=== PATIENT | female | born 1990 | race Caucasian/White ===

== ENCOUNTER 2019-12-26 14:42 | Emergency (ER) | payer OTHER, SELFPAY ==
--- NOTE | ~2019-12-26 | US_ITS ---
US OB <= 14 weeks fetus DATE: 12/26/2019 15:20 INDICATION: Light vaginal bleeding; 8 weeks with twins. History of 2 miscarriages. TECHNIQUE: Real-time imaging and Doppler analysis COMPARISON: None FINDINGS: Dichorionic diamniotic twin gestation is identified. Yolk sac and poles are identifie d in each sac. Normal alignment of amniotic fluid in each sac. Estimated gestational ages are 7 weeks 3 days and 7 weeks 1 day. heart rates are 185 and 161 bp m. A couple of hypoechoic areas are seen within the uterus, measuring 2.2 x 2.1 x 0.5 cm and 1.7 x 1.7 x 0.7 cm. These are consistent with small subchorionic hemorrhages. The ovaries are nonvisualized. No pelvic free fluid is detected. IMPRESSION: 2 small subchorionic hematomas Dichorionic diamniotic twin gestation Reviewed, dictated and finalized at [facility]. Reviewed, dictated and finalized at [facility].
[2019-12-26 14:43] VITALS: BP 110/68; PULSE 86; RESP 18; TEMP 36.9; O2SAT 100
[2019-12-26 15:08] LABS: Basophils Percent Auto 0.2 % (0.2-1.2); Eosinophils Absolute Auto 0.1 K/mm3 (0-0.3); Eosinophils Percent Auto 0.7 % (0-4.4); Hematocrit 37.3 % (37.0-47.0); Hemoglobin 12.9 g/dL (12.0-15.0); Immature Granulocyte Absolute 0.06 K/mm3 (0.00-0.031); Immature Granulocyte Percent A 0.4 % (0-0.5); Lymphocytes Absolute Auto 1.94 K/mm3 (0.9-3.2); Lymphocytes Percent Auto 14.4 % (18.3-44.2); Mean Corpuscular HGB Conc 34.6 g/dl (32-36); Mean Corpuscular Hemoglobin 30.3 pg (26-34); Mean Corpuscular Volume 87.6 fl (80-100); Mean Platelet Volume 10.2 fl (7.4-10.4); Monocytes Absolute Auto 0.8 K/mm3 (0.1-0.6); Monocytes Percent Auto 5.8 % (2.6-8.5); Neutrophils Absolute Auto 10.5 K/mm3 (1.3-6.7); Neutrophils Percent Auto 78.5 % (45.5-73.1); Platelet Count Result 283 k/mm3 (150-375); Red Blood Count 4.26 M/mm3 (4.2-5.4); Red Cell Distribution Width 12.2 % (11.5-14.5); White Blood Count 13.4 K/mm3 (4.5-10.0)
--- NOTE | 2019-12-26 16:55 | ED.ABDPAIN ---
HPI - Abdominal Pain General Chief Complaint: Urogenital-Female Stated Complaint: Preg/Bleeding Time Seen by Provider: 12/26/19 14:48 Source: patient and family History of Present Illness HPI narrative: 29 years old white female 5 para 2 2. Currently patient is 8 weeks , was urinating, white, noticed pinkish coloration on the wipe, denies any cramps or pain. Denies any active vaginal bleeding. Patient had history of 2 miscarriages which make her very nervous about any vaginal discharge. Patient denies any fever, chills, nausea, vomiting, diarrhea, constipation or urinary symptoms. Related Data Home Medications Medication Instructions Recorded Confirmed No Home Medications 12/26/19 12/26/19 Allergies Allergy/AdvReac Type Severity Reaction Status Date / Time Penicillins Allergy Rash Verified 12/26/19 14:53 Review of Systems Review of Systems: Narrative: CONSTITUTIONAL: Denies fever, chills, or sweats. EYES: Denies visual changes, redness, or discharge. ENT: Denies rhinorrhea, congestion, sore throat, or otalgia. CARDIOVASCULAR: Denies chest pain, palpitations, or edema. RESPIRATORY: Denies cough or dyspnea. GASTROINTESTINAL: Denies abdominal pain, nausea, vomiting, or diarrhea. GENITOURINARY: Denies dysuria or hematuria. SKIN: Denies rash or itching. MUSCULOSKELETAL: Denies back pain, joint pain, or myalgia. NEUROLOGIC: Denies headache, numbness, or weakness. PSYCHIATRIC: Denies anxiety or depression. [facility] Past Medical History Medical History (Updated 12/26/19 @ 17:11 by Gaurang Messina MD) Miscarriage Exam Narrative: Exam Narrative: General appearance: Well-developed, well-nourished Skin: Normal color Head: Normocephalic, nontraumatic Eyes: Clear conjunctiva ENT: Oropharynx normal, ears normal, nose normal Neck: Supple, nontender Chest and respiratory: Airway patent, no respiratory distress, no accessory muscle use Heart: Regular rate/rhythm Abdomen: Soft, nontender, no organomegaly, quiet bowel sounds Vascular: Normal peripheral pulses, normal capillary refill. Musculoskeletal: Normal range of motion, nontender back Neurologic: Alert and oriented ?3, SHARED SERVICES REPRESENTATIVE is normal as tested, no gross motor deficit : External Female Exam: normal external appearance Speculum Exam - Vagina: normal appearance of the vagina Speculum Exam - Cervix: normal appearance of the cervix and Other cervical findings present (No vaginal bleeding) Bimanual exam- vagina & uterus: normal bimanual exam Bimanual Exam- Adnexa, other: normal adnexae Course Course Emergency Course: Stable Vital Signs Vital signs: Vital Signs Temperature 36.9 C 12/26/19 14:43 Pulse Rate 86 12/26/19 14:43 Respiratory Rate 18 12/26/19 14:43 Blood Pressure 110/68 12/26/19 14:43 Pulse Oximetry 100 12/26/19 14:43 Temperature 36.9 C 12/26/19 14:43 Pulse Rate 86 12/26/19 14:43 Respiratory Rate 18 12/26/19 14:43 Blood Pressure 110/68 12/26/19 14:43 Pulse Oximetry 100 12/26/19 14:43 MDM - Abdominal Pain MDM Narrative Medical decision making narrative: Patient presents with possible vaginal bleeding, Pelvic exam showed no vaginal bleeding. Patient just anxious because of history of 2 miscarriages in the past. Lab Data Result diagrams: 12/26/19 14:59 Labs: Lab Results 12/26/19 12/26/19 12/26/19 Range/Units 14:59 14:59 14:59 WBC 13.4 H (4.5-10.0) K/mm3 RBC 4.26 (4.2-5.4) M/mm3 Hgb 12.9 (12.0-15.0) g/dL Hct 37.3 (37.0-47.0) % MCV 87.6 (80-100) fl MCH 30.3 (26-34) pg MCHC 34.6 (32-36) g/dl RDW 12.2 (11.5-14.5) % Plt Count 283 (150-375) k/mm3 MP
[2019-12-26] MEDS: RHO(D) IMMUNE GLOBULIN 300 MCG SYRINGE IM (17:39)
[2019-12-26 17:40] VITALS: BP 122/80; PULSE 77; RESP 20; TEMP 36.7; O2SAT 98
== END 2019-12-26 17:43 | disposition home or self-care (01) ==
PROVIDERS: Emergency Provider Emergency Medicine
DX: O20.0 Threatened abortion (principal); Z3A.01 Less than 8 weeks gestation of pregnancy
CPT/HCPCS: 36415; 76801; 84702; 85025; 85461; 90384; 96372; 99284; J2790

== ENCOUNTER 2020-06-09 03:42 | Observation (INO) | payer OTHER, SELFPAY ==
--- NOTE | ~2020-06-09 | US_ITS ---
EXAMINATION: US OB limited EXAM DATE: 06/09/2020 07:39 INDICATION: Fall, check placenta. 3rd trimester. TECHNIQUE: Pelvic obstetrical twin transabdominal sonogram was performed by a technologist. There a re multiple grayscale and Doppler images available for interpretation. FINDINGS: There are two living fetuses. The placenta(s) is/are anterior and posterior respectively. There is sac separation. FETUS A: Presentation is low vertex. cardiac activity and movement are noted. hear t rate is 139 beats per minute (bpm). No evidence of retroplacental hemorrhage. FETUS B: Presentation is higher breech. cardiac activity and movement are noted. h eart rate is 141 bpm. This posteriorly located placenta less well visualized but no sonographic evide nce of retroplacental hemorrhage. IMPRESSION: 1. Twin fetuses with heart rates of 139 bpm and 141 bpm, respectively. 2. Unremarkable placentas. Reviewed, dictated and finalized at location [facility]. RY COOK
--- NOTE | 2020-06-09 03:42 | PC.NURSE ---
Addendum entered by Laron Ybarra RN 06/09/20 03:44: Call to OB, request pt be brought to them for evaluation. Pt taken to OB via w/c. Original Note: Pt presents to ED. Reports is a high risk at 31 wks . Pt states that she fell down the steps and is requesting to have her twins checked out. Reports movement feels different, I think one of them has moved . Denies vag bleeding or d/c. Pt states also has a sore spot on her leg, but it's fine, I think it's a carpet burn . Denies striking head or LOC. States saw her OB at [facility] today for a non-stress test.
[2020-06-09 04:00] VITALS: BMI 31.4
[2020-06-09 04:04] VITALS: BP 108/69; PULSE 92
[2020-06-09 05:00] VITALS: BP 100/67; PULSE 99
[2020-06-09 06:00] VITALS: BP 94/63; PULSE 94
[2020-06-09 07:00] VITALS: BP 101/61; PULSE 87
--- NOTE | 2020-06-09 07:20 | PC.NURSE ---
Pt to ultrasound per wheelchair
--- NOTE | 2020-06-09 07:38 | PC.NURSE ---
Pt returned from ultrasound per ultrasound.
--- NOTE | 2020-06-13 13:57 | PM.OBTRLD ---
OB - Triage/Final Diagnosis Visit Information Comments/Additional reasons for admission: I have assessed the risk for this patient, Luna Sethi, and determined that she would benefit from observation care. Final Diagnosis (1) Trauma during : Code(s): O9A.219 - Injury, poisoning and certain other consequences of external causes complicating , unspecified trimester Status: Acute
== END 2020-06-09 08:25 | disposition home or self-care (01) ==
PROVIDERS: Admitting Provider Obstetrics & Gynecology; Visit Provider Obstetrics & Gynecology
DX: O99.891 Other specified diseases and conditions complicating pregnancy (principal); W19.XXXA Unspecified fall, initial encounter; Z3A.31 31 weeks gestation of pregnancy
CPT/HCPCS: 76815; G0378; G0379

== ENCOUNTER 2022-04-24 08:47 | Emergency (ER) | payer OTHER, SELFPAY ==
[2022-04-24 09:01] VITALS: BP 106/72; PULSE 109; RESP 14; TEMP 36.8; O2SAT 99
[2022-04-24 09:47] LABS: Influenza A QL RT-PCR Negative (Negative); Influenza B QL RT-PCR Negative (Negative); RSV RNA, RT-PCR Negative (Negative); SARS-CoV-2 RNA PCR Negative
--- NOTE | 2022-04-24 11:39 | ED.GENADULT ---
HPI - General Adult General Chief complaint: Upper Respiratory Infection Stated complaint: N/V, chills, URI symptoms Time Seen by Provider: 04/24/22 08:50 History of Present Illness HPI narrative: 31-year-old female presents to the emergency room for evaluation of sinus congestion, postnasal drip, ear fullness, rhinorrhea sneezing for 2 months. Patient states she was seen in urgent care on Friday diagnosed with a sinus infection. Began taking doxycycline and prednisone, has since been experiencing nausea and chills. Related Data Home Medications Medication Instructions Recorded Confirmed aspirin 81 mg tablet 81 mg PO BID 06/09/20 06/09/20 prenat.vits,sunny,yiy-rudz-dyztl 1 tablet PO DAILY 06/09/20 06/09/20 Allergies Allergy/AdvReac Type Severity Reaction Status Date / Time Penicillins Allergy Rash Verified 12/26/19 14:53 Review of Systems Review of Systems: CONSTITUTIONAL: Denies fever, chills, or sweats. EYES: Denies visual changes, redness, or discharge. ENT: Reports rhinorrhea, congestion, and otalgia. CARDIOVASCULAR: Denies chest pain, palpitations, or edema. RESPIRATORY: Denies cough or dyspnea. GASTROINTESTINAL: Denies abdominal pain, nausea, vomiting, or diarrhea. GENITOURINARY: Denies dysuria or hematuria. SKIN: Denies rash or itching. MUSCULOSKELETAL: Denies back pain, joint pain, or myalgia. NEUROLOGIC: Denies headache, numbness, dizziness, or weakness. PSYCHIATRIC: Denies anxiety or depression. [facility] Past Medical History Medical History Miscarriage Exam Narrative: GENERAL: Well-appearing, well-nourished, no physical limitations, and in no acute distress. HEAD: Normocephalic, atraumatic. EYES: Conjunctivae normal, PERRLA and EOMI. ENT: External nose normal, Nares clear, no rhinorrhea or epistaxis. Mucous membranes moist. Oropharynx without tonsillar hypertrophy exudate or other lesions. External ears normal, bilateral TMs normal bilaterally with clear effusion NECK: Supple. No adenopathy or masses. CHEST: Clear to auscultation. No respiratory distress. No wheezes rales or rhonchi. HEART: Regular rate and rhythm. No murmur heard. Normal peripheral pulses. EXTREMITIES: Normal range of motion. No edema. No clubbing or cyanosis SKIN: Warm, dry, no rash. No noted wounds NEURO: No focal deficits. Alert and oriented x3. MAEW. CN's II-XI intact bilaterally, normal gait PSYCH: Cooperative. Normal mood and affect. Course Vital Signs Vital signs: Vital Signs Temperature 36.8 C 04/24/22 09:01 Pulse Rate 109 H 04/24/22 09:01 Respiratory Rate 14 04/24/22 09:01 Blood Pressure 106/72 04/24/22 09:01 Pulse Oximetry 99 04/24/22 09:01 Oxygen Delivery Room Air 04/24/22 09:01 Temperature 36.8 C 04/24/22 09:01 Pulse Rate 109 H 04/24/22 09:01 Respiratory Rate 14 04/24/22 09:01 Blood Pressure 106/72 04/24/22 09:01 Pulse Oximetry 99 04/24/22 09:01 Oxygen Delivery Room Air 04/24/22 09:01 Medical Decision Making Vital Signs Vital Signs: Vital Signs Temperature 36.8 C 04/24/22 09:01 Pulse Rate 109 H 04/24/22 09:01 Respiratory Rate 14 04/24/22 09:01 Blood Pressure 106/72 04/24/22 09:01 Pulse Oximetry 99 04/24/22 09:01 Oxygen Delivery Room Air 04/24/22 09:01 Temperature 36.8 C 04/24/22 09:01 Pulse Rate 109 H 04/24/22 09:01 Respiratory Rate 14 04/24/22 09:01 Blood Pressure 106/72 04/24/22 09:01 Pulse Oximetry 99 04/24/22 09:01 Oxygen Delivery Room Air 04/24/22 09:01 Lab Data Labs: Lab Results 04/24/22 Range/Units 09:01 Influenza A (RT-PCR) Negative (Negative) Influenza B (RT-PCR) Negative (Negative) RSV (RT-PCR) Negative (Negative) SARS-CoV-2 RNA (RT-PCR) Negative Discharge Plan Discharge Clinical Impression: Upper respiratory infection, Adverse effect of antibiotic, Nausea Patient Disposition: Home, Self-Care Condition: St
== END 2022-04-24 12:05 | disposition home or self-care (01) ==
PROVIDERS: Emergency Medicine; Emergency Provider Nurse Practitioner Family; PCP Emergency Medicine
DX: J06.9 Acute upper respiratory infection, unspecified (principal); R11.0 Nausea; T36.4X5A Adverse effect of tetracyclines, initial encounter; Z20.822 Contact with and (suspected) exposure to COVID-19
CPT/HCPCS: 87637; 99283

== ENCOUNTER 2022-06-26 09:10 | Emergency (ER) | payer OTHER, SELFPAY ==
[2022-06-26 09:20] VITALS: BP 111/67; PULSE 116; RESP 16; TEMP 38.4; O2SAT 98
--- NOTE | 2022-06-26 09:27 | ED.URI ---
HPI - URI/Sore Throat General Chief Complaint: Upper Respiratory Infection Stated Complaint: Cough/Fever/Ears Time Seen by Provider: 06/26/22 09:27 Source: patient Mode of arrival: ambulatory Limitations: no limitations History of Present Illness HPI Narrative: 32 yo F presents with c/o sinus pressure, headaches, fatigue, fever, chills, nasal congestion and cough. States coughign due to drainage. symptoms started yesterday but reports using sinus meds for several weeks due to off and on sinus congestion. Had neg home covid test today. Is concerned she has bacterial sinus infection. currently taking zyrtec and multisymptom relief alkaseltzer. all systems reviewed and negative except as noted above. Related Data Home Medications Medication Instructions Recorded Confirmed metformin 500 mg tablet 500 mg PO DAILY 06/26/22 06/26/22 Allergies Allergy/AdvReac Type Severity Reaction Status Date / Time Penicillins Allergy Rash Verified 06/26/22 09:12 Review of Systems Review of Systems: CONSTITUTIONAL: Denies fever, chills, or sweats. EYES: Denies visual changes, redness, or discharge. ENT: reports rhinorrhea, congestion, sinus pressure, sore throat, bilateral ear pressure. CARDIOVASCULAR: Denies chest pain, palpitations, or edema. RESPIRATORY: reports cough. Denies dyspnea. GASTROINTESTINAL: Denies abdominal pain, nausea, vomiting, or diarrhea. GENITOURINARY: Denies dysuria or hematuria. SKIN: Denies rash or itching. MUSCULOSKELETAL: Denies back pain, joint pain, or myalgia. NEUROLOGIC: Denies headache, numbness, or weakness. PSYCHIATRIC: Denies anxiety or depression. All other systems reviewed are negative, except as documented in HPI. [facility] Past Medical History Medical History Miscarriage Comments At time of signature, agree with nursing past medical, surgical, social and family history. There is no relevant family history pertinent to the presenting complaint. Exam Narrative: GENERAL: This is a well-nourished, well-developed patient, in no apparent distress. HEAD: normocephalic, atraumatic. EYES: PERRL. Sclera clear/white. Vision is grossly intact. EARS: External ears normal, auditory canals clear and without drainage, Fluid bilateral TMs without erythema. NOSE: External nose normal with Moderate congestion, erythema and swelling to both nares. Bilateral frontal and maxillary sinus tenderness. THROAT: Mucous membranes moist, Erythema and postnasal drainage. NECK: Neck supple, non-tender without lymphadenopathy, masses or thyromegaly. CARDIOVASCULAR: Regular rate and rhythm without murmurs, gallops, or rubs. RESPIRATORY: Clear to auscultation. Breath sounds equal bilaterally. No wheezes, rales, or rhonchi. SKIN: warm, Dry, intact with no suspicious lesions or rash, good texture and turgor. NEURO: awake, alert, and oriented to person, place and time. There were no obvious focal neurologic abnormalities. EXTREMITIES: No joint tenderness, effusion, or edema noted. Course Course Level of Care: Express Care Visit Vital Signs Vital signs: Vital Signs Temperature 38.4 C H 06/26/22 09:20 Pulse Rate 116 H 06/26/22 09:20 Respiratory Rate 16 06/26/22 09:20 Blood Pressure 111/67 06/26/22 09:20 Pulse Oximetry 98 06/26/22 09:20 Oxygen Delivery Room Air 06/26/22 09:20 Temperature 38.4 C H 06/26/22 09:20 Pulse Rate 116 H 06/26/22 09:20 Respiratory Rate 16 06/26/22 09:20 Blood Pressure 111/67 06/26/22 09:20 Pulse Oximetry 98 06/26/22 09:20 Oxygen Delivery Room Air 06/26/22 09:20 Reviewed, patient took antipyretics prior to arrival. MDM - URI/Sore Throat MDM Narrative Medical decision making narrative: Patient is aware of diagnosis, understands and agrees to treatment plan. Anticipatory guidance given. Patient agrees to follow-up as directed and is aware of reasons to seek care at the emergency department
== END 2022-06-26 09:41 | disposition home or self-care (01) ==
PROVIDERS: Emergency Provider Nurse Practitioner Family; PCP Emergency Medicine
DX: J01.90 Acute sinusitis, unspecified (principal)
CPT/HCPCS: 87804; 99213; G0463

== ENCOUNTER 2022-12-25 15:49 | Emergency (ER) | payer OTHER, SELFPAY ==
[2022-12-25 15:56] VITALS: BP 113/69; PULSE 109; RESP 16; TEMP 36.8; O2SAT 100
--- NOTE | 2022-12-25 16:10 | ED.URI ---
HPI - URI/Sore Throat General Chief Complaint: Upper Respiratory Infection Stated Complaint: Sore Throat History of Present Illness HPI Narrative: 32-year-old female presented for complaint of sore throat for 2 days, with fatigue and chills. Reports painful swallow, but maintaining secretions. Endorses taking ibuprofen and cold medication in the evening, but states she wakes in the morning and pain is worse. Denies cough, shortness of breath, wheezing, nausea, vomiting or diarrhea. Denies sick contacts. Related Data Home Medications Medication Instructions Recorded Confirmed cetirizine 10 mg tablet (Zyrtec) 10 mg PO DAILY 12/25/22 12/25/22 desvenlafaxine succinate 25 mg 25 mg PO DAILY 12/25/22 12/25/22 tablet,extended release 24 hr hydroxyzine HCl 25 mg tablet See Rx Instructions .Route .COMPLEX 12/25/22 12/25/22 Allergies Allergy/AdvReac Type Severity Reaction Status Date / Time Penicillins Allergy Rash Verified 12/25/22 15:51 Review of Systems Review of Systems: CONSTITUTIONAL: Denies body aches, fever EYES: Denies visual changes, redness, or discharge. ENT: Reports sore throat denies rhinorrhea, congestion, or otalgia. CARDIOVASCULAR: Denies chest pain, palpitations, or edema. RESPIRATORY: Denies dyspnea. GASTROINTESTINAL: Denies abdominal pain, nausea, vomiting, or diarrhea. SKIN: Denies rash, itching, or wounds. MUSCULOSKELETAL: Denies back pain, joint pain, or myalgia. NEUROLOGIC: Denies headache [facility] Past Medical History Medical History Miscarriage Exam Narrative: GENERAL: Mildly ill-appearing, no acute distress. EYES: conjunctivae clear ENT: Mucous membranes moist. TM pearly bradford with normal light reflex bilaterally; no tragal tenderness. Oropharynx severely erythematous Tonsils enlarged 2+ without exudate. No drooling, no hoarseness, no trismus, uvula midline. No tripod positioning, hot potato voice, or soft palate swelling. NECK: Supple. Bilateral anterior cervical lymphadenopathy CHEST: Clear to auscultation, breath sounds equal. No respiratory distress, speaks in full sentences. HEART: Regular rate and rhythm. No murmur heard. SKIN: Warm, dry, no rash. NEURO: Alert and oriented x3. Course Course Emergency Course: Patient is aware of diagnosis, understands and agrees to treatment plan. Anticipatory guidance given. Patient agrees to follow-up as directed and is aware of reasons to seek care at the emergency department. Portions of this record may have been created with voice recognition software Level of Care: Express Care Visit Vital Signs Vital signs: Vital Signs Temperature 98.2 F 12/25/22 15:56 Pulse Rate 109 H 12/25/22 15:56 Respiratory Rate 16 12/25/22 15:56 Blood Pressure 113/69 12/25/22 15:56 Pulse Oximetry 100 12/25/22 15:56 Oxygen Delivery Room Air 12/25/22 15:56 Temperature 98.2 F 12/25/22 15:56 Pulse Rate 109 H 12/25/22 15:56 Respiratory Rate 16 12/25/22 15:56 Blood Pressure 113/69 12/25/22 15:56 Pulse Oximetry 100 12/25/22 15:56 Oxygen Delivery Room Air 12/25/22 15:56 MDM - URI/Sore Throat MDM Narrative Medical decision making narrative: POS strep result reviewed with pt. PCN allergy. Advise supportive treatments. Patient is appropriate for outpatient treatment and follow-up. Scheduled with PCP in 2 days Differential Diagnosis Differential diagnosis: Likely upper respiratory infection, viral infection and pharyngitis Lab Data Labs: Strep Screen Positive Group A Strep *(Reference Range: Negative)* Discharge Plan Discharge Clinical Impression: Strep pharyngitis Patient Disposition: Home, Self-Care Condition: Stable Instructions: Antibiotic Form, Strep Throat (ED) Additional Instructions: - Take the antibiotic as directed. (avoid takign hydroxyzine while takin
== END 2022-12-25 16:50 | disposition home or self-care (01) ==
PROVIDERS: Emergency Provider Nurse Practitioner Family; PCP Internal Medicine
DX: J02.0 Streptococcal pharyngitis (principal)
CPT/HCPCS: 87880; 99213; G0463

== ENCOUNTER 2023-03-06 12:25 | Emergency (ER) | payer OTHER, SELFPAY ==
--- NOTE | 2023-03-06 12:27 | ED.URI ---
HPI - URI/Sore Throat General Chief Complaint: Upper Respiratory Infection Stated Complaint: Sore Throat Time Seen by Provider: 03/06/23 12:47 Source: patient and RN notes reviewed Mode of arrival: ambulatory Limitations: no limitations History of Present Illness HPI Narrative: 32-year-old female presents with concern for sore throat, body aches, chills, sweats, it mild cough. Reports history of frequent strep infections, she is scheduled to have her tonsils out next week. MD elicited complaint: sore throat Related Data Home Medications Medication Instructions Recorded Confirmed cetirizine 10 mg tablet (Zyrtec) 10 mg PO DAILY 12/25/22 03/06/23 desvenlafaxine succinate 25 mg 25 mg PO DAILY 12/25/22 03/06/23 tablet,extended release 24 hr hydroxyzine HCl 25 mg tablet See Rx Instructions .Route .COMPLEX 12/25/22 03/06/23 Allergies Allergy/AdvReac Type Severity Reaction Status Date / Time No Known Allergies Allergy Verified 03/06/23 12:46 Review of Systems Review of Systems: CONSTITUTIONAL: Reports malaise, chills, sweats EYES: Denies visual changes, redness, or discharge. ENT: Reports rhinorrhea, congestion, sore throat. CARDIOVASCULAR: Denies chest pain, palpitations, or edema. RESPIRATORY: Reports cough. Denies dyspnea. GASTROINTESTINAL: Denies abdominal pain, nausea, vomiting, diarrhea SKIN: Denies rash or itching. MUSCULOSKELETAL: Reports myalgia. NEUROLOGIC: Denies headache. All systems reviewed & are unremarkable except as noted in HPI and below PMFSH Past Medical History Medical History Miscarriage Comments At time of signature, agree with nursing past medical, surgical, social and family history. There is no relevant family history pertinent to the presenting complaint Exam Narrative: GENERAL: Nontoxic-appearing and in no acute distress. HEAD: Normocephalic EYES: PERRLA, conjunctivae clear ENT: Nares clear, turbinates edematous and erythematous, clear discharge. Mucous membranes moist. TM pearly bradford with sharp light reflex bilaterally; no tragal tenderness. Oropharynx not erythematous without lesions. Tonsils not enlarged and without exudate, no drooling, no hoarseness, no trismus, uvula midline. NECK: Supple. No lymphadenopathy CHEST: Clear to auscultation, breath sounds equal. No wheezing, rhonchi, rales, or stridor. No respiratory distress, speaks in full sentences. HEART: Regular rate and rhythm. No murmur heard. SKIN: Warm, dry, no rash. NEURO: Alert and oriented x3. PSYCH: Normal mood and affect Course Course Emergency Course: Patient is aware of diagnosis, understands and agrees to treatment plan. Anticipatory guidance given. Patient agrees to follow-up as directed and is aware of reasons to seek care at the emergency department. Portions of this record may have been created with voice recognition software Level of Care: Express Care Visit Vital Signs Vital signs: Reviewed. MDM - URI/Sore Throat MDM Narrative Medical decision making narrative: Differential diagnosis considered: Harley virus, strep pharyngitis, allergic rhinitis, upper respiratory tract infection, sinusitis, rhinosinusitis, nasopharyngitis. viral pharyngitis, otitis media, otitis externa, pneumonia, bronchitis, viral cough syndrome, viral syndrome, and influenza. Exam findings show no acute concerns or changes; patient is non-toxic appearing and is in no distress. Patient is appropriate for outpatient treatment and follow-up. Lab Data Attestation: I reviewed the patient's lab results. Critical Care Time Critical Care Time Critical Care Time: No Discharge Plan Discharge Clinical Impression: Upper respiratory infection Patient Disposition: Home, Self-Care Condition: Stable Instructions: Upper Respiratory Infection (ED) Additional Instructions: Your rapid COVID and flu tests are negative Your rapid strep swab was negative today at Ex
[2023-03-06 12:32] VITALS: BP 111/70; PULSE 106; RESP 18; TEMP 36.8; O2SAT 100
[2023-03-06 12:36] VITALS: BP 111/70; PULSE 106; RESP 18; TEMP 36.8; O2SAT 100
== END 2023-03-06 13:15 | disposition home or self-care (01) ==
PROVIDERS: Emergency Provider Nurse Practitioner; PCP Internal Medicine
DX: J06.9 Acute upper respiratory infection, unspecified (principal); Z20.822 Contact with and (suspected) exposure to COVID-19
CPT/HCPCS: 87081; 87426; 87804; 87880; 99213; C9803; G0463

== ENCOUNTER 2023-05-06 12:37 | Outpatient (CLI) | payer OTHER, SELFPAY ==
[2023-05-08 05:28] LABS: Prolactin 18.6 ng/mL (***)
== END 2023-05-06 12:38 | disposition home or self-care (01) ==
LOC: ANHLAB 12:38
PROVIDERS: PCP Internal Medicine; Visit Provider Registered Nurse
DX: N64.52 Nipple discharge (principal)
CPT/HCPCS: 36415; 84146

== ENCOUNTER 2023-05-19 13:52 | Outpatient (CLI) | payer OTHER, SELFPAY ==
--- NOTE | ~2023-05-19 | US_ITS ---
EXAMINATION: US OB <=14 wk fetus w TV DATE: 05/19/2023 14:48 INDICATION: First trimester with inconclusive viability TECHNIQUE: Real-time pelvic ultrasound utilizing transabdominal probe was performed. The leon albarran radiologist was not present for the study. COMPARISON: None. FINDINGS: The uterus measures 10.9 x 6.5 x 7.7 cm. There is an intrauterine gestational sac. A yolk sac and fe attila pole are identified. The crown rump length measures 2.0, which correlates with an estimated gesta tional age of 8 weeks and 4 days. heart motion is identified measuring 167 beats per minute (bp m) by M-mode Doppler. The right ovary measures 2.5 x 1.6 x 1.7 cm. The left ovary measures 3.1 x 1.9 x 2.4 cm. There is sma ll amount of anechoic free fluid in the pelvis. IMPRESSION: 1. Single living fetus with heart rate of 167 bpm. 2. Gestational age by ultrasound of 8 weeks 4 day(s) +/- 5 day(s) with ultrasound estimated date of delivery (MIGUELINA) of 12/25/2023. Reviewed, dictated and finalized at location A. [facility] IMPRESSION: 1. Single living fetus with heart rate of 167 bpm. 2. Gestational age by ultrasound of 8 weeks 4 day(s) +/- 5 day(s) with ultraso und estimated date of delivery (MIGUELINA) of 12/25/2023.
== END 2023-05-19 13:53 | disposition home or self-care (01) ==
PROVIDERS: PCP Internal Medicine; Visit Provider Registered Nurse
DX: O36.80X0 Pregnancy with inconclusive fetal viability, not applicable or unspecified (principal)
CPT/HCPCS: 76801; 76817

== ENCOUNTER 2023-07-15 13:56 | Observation (INO) | payer OTHER, SELFPAY ==
--- NOTE | ~2023-07-15 | US_ITS ---
EXAMINATION: US OB limited DATE: 07/15/2023 16:56 INDICATION: Fall during second trimester , placental evaluation TECHNIQUE: Real-time ultrasound of the pelvis was performed. The interpreting radiologist was not pre sent for the study. COMPARISON: 05/19/2023 FINDINGS: There is a single living fetus in vertex presentation. The placenta is anterior and appears normal. cardiac activity and movement are noted. heart rate is 150 beats per minut e (bpm). The amniotic fluid index is subjectively normal. IMPRESSION: 1. Single living fetus in vertex presentation. 2. Grossly normal placenta without evidence of previa or abruption. However, acute hemorrhage can be isoechoic to the placenta. Recommend continued clinical followup. Reviewed, dictated and finalized at location L. SOFTWARE DEVELOPER IMPRESSION: 1. Single living fetus in vertex presentation. 2. Grossly normal placenta without evidence of previa or abruption. However, a cute hemorrhage can be isoechoic to the placenta. Recommend continued clinical followup.
[2023-07-15 12:47] VITALS: BP 120/72; PULSE 76; RESP 16; TEMP 36.2; O2SAT 100
--- NOTE | 2023-07-15 15:32 | PC.NURSE ---
Dr Valdes requests to evaluate pt in OB department.
--- NOTE | 2023-07-15 16:10 | OBADM ---
This patient, Luna Sethi, admitted to the OB room [facility] for observation. Patient/family oriented to hospital policies and general routines including ID bracelet, bed and alarms, visiting hours, pain management, procedures, bathroom and other care routines, personal items, smoking policy, room service/diet, and visiting hours. Patient/Family are encouraged to report perceived risks to care and to ask questions if they do not understand what they are told or what they should do.
[2023-07-15 16:22] VITALS: TEMP 36.2
--- NOTE | 2023-07-15 16:26 | PC.NURSE ---
7836--Pt reports cramping no worse. Labs drawn for Rhogam workup.To US per wheelchair.
--- NOTE | 2023-07-15 16:29 | PC.NURSE ---
1550--Pt reports no bleeding, feeling baby move. T's doppled 140-156.
--- NOTE | 2023-07-15 17:23 | PC.NURSE ---
171--Reported US report to Dr. Anders. DC orders given.
--- NOTE | 2023-07-16 10:45 | PM.OBTRLD ---
OB - Triage/Final Diagnosis Visit Information Date of evaluation: 07/15/23 Reason for evaluation: other (fall in ) Comments/Additional reasons for admission: I have assessed the risk for this patient, Luna Sethi, and determined that she would benefit from observation care. Evaluation Laboratory results: Laboratory Tests 07/15/23 16:14 Blood Type B Negative Antibody Screen Negative Screen Negative Baby's Blood Type Not Reportable Baby's JONATHON Not Reportable Doses of RhIg Required 1 Vital signs: Vital Signs - 24 hr 07/15/23 12:47 07/15/23 16:22 Temperature 97.1 F L 97.2 F L Pulse Rate 76 Respiratory Rate 16 Blood Pressure 120/72 Pulse Oximetry 100
[2023-07-16] MEDS: RHO(D) IMMUNE GLOBULIN 300 MCG/2 ML SYRINGE IM (12:21)
== END 2023-07-15 17:26 | disposition home or self-care (01) ==
PROVIDERS: Admitting Provider Obstetrics & Gynecology; PCP Internal Medicine; Visit Provider Student in an Organized Health Care Education/Training Program
DX: Z04.3 Encounter for examination and observation following other accident (principal); W19.XXXA Unspecified fall, initial encounter
CPT/HCPCS: 36415; 76815; 85461; 86850; 86900; 86901; 90384; G0378; G0379; J2790

== ENCOUNTER 2023-09-05 08:08 | Outpatient (CLI) | payer OTHER, SELFPAY ==
[2023-09-05 09:28] LABS: Hematocrit 36.7 % (37.0-47.0); Mean Corpuscular HGB Conc 32.7 g/dl (32-36); Mean Corpuscular Hemoglobin 30.5 pg (26-34); Mean Corpuscular Volume 93.4 fl (80-100); Mean Platelet Volume 9.6 fl (7.4-10.4); Platelet Count Result 262 k/mm3 (150-375); Red Blood Count 3.93 M/mm3 (4.2-5.4); White Blood Count 11.3 K/mm3 (4.5-10.0)
[2023-09-05 09:39] LABS: Glucose 1 Hour PP 50gm Dose 143 mg/dL
== END 2023-09-05 08:09 | disposition home or self-care (01) ==
LOC: ANHLAB 08:09
PROVIDERS: PCP Internal Medicine; Visit Provider Nurse Practitioner Family
DX: Z34.90 Encounter for supervision of normal pregnancy, unspecified, unspecified trimester (principal); Z3A.00 Weeks of gestation of pregnancy not specified
CPT/HCPCS: 36415; 82947; 85027

== ENCOUNTER 2023-09-12 08:01 | Outpatient (CLI) | payer OTHER, SELFPAY ==
[2023-09-12 08:23] LABS: Glucose Fasting Gestational 83 mg/dL (>/=95)
[2023-09-12 10:01] LABS: Glucose 1 Hour Gest 191 mg/dL (>/=180)
[2023-09-12 11:09] LABS: Glucose 2 Hour Gest 173 mg/dL (>/= 155)
[2023-09-12 11:44] LABS: Glucose 3 Hour Gest 106 mg/dL (>/=140)
== END 2023-09-12 08:02 | disposition home or self-care (01) ==
PROVIDERS: PCP Internal Medicine; Visit Provider Nurse Practitioner Family
DX: O99.810 Abnormal glucose complicating pregnancy (principal); Z3A.00 Weeks of gestation of pregnancy not specified
CPT/HCPCS: 36415; 82951; 82952

== ENCOUNTER 2023-10-31 10:27 | Outpatient (CLI) | payer OTHER, SELFPAY ==
[2023-10-31 11:28] LABS: Hematocrit 35.9 % (37.0-47.0); Hemoglobin 11.9 g/dL (12.0-15.0); Mean Corpuscular HGB Conc 33.1 g/dl (32-36); Mean Corpuscular Hemoglobin 30.4 pg (26-34); Mean Corpuscular Volume 91.8 fl (80-100); Mean Platelet Volume 10.2 fl (7.4-10.4); Platelet Count Result 249 k/mm3 (150-375); Red Blood Count 3.91 M/mm3 (4.2-5.4); Red Cell Distribution Width 12.9 % (11.5-14.5); White Blood Count 9.7 K/mm3 (4.5-10.0)
[2023-10-31 12:18] LABS: HIV 1/2 Ab P24 Ag Result Negative (Negative)
[2023-10-31 14:06] LABS: Rapid Plasma Reagin Non-Reactive (NonReactive)
== END 2023-10-31 10:28 | disposition home or self-care (01) ==
LOC: ANHLAB 10:28
PROVIDERS: PCP Internal Medicine; Visit Provider Nurse Practitioner Obstetrics & Gynecology
DX: Z34.90 Encounter for supervision of normal pregnancy, unspecified, unspecified trimester (principal); Z3A.00 Weeks of gestation of pregnancy not specified
CPT/HCPCS: 36415; 85027; 86592; 86703; 86850; G0432

== ENCOUNTER 2023-11-01 09:07 | Outpatient (CLI) | payer OTHER, SELFPAY ==
[2023-11-01 10:29] LABS: Glucose 1 Hour PP 50gm Dose 173 mg/dL
== END 2023-11-01 09:08 | disposition home or self-care (01) ==
LOC: ANHLAB 09:08
PROVIDERS: PCP Internal Medicine; Visit Provider Nurse Practitioner Obstetrics & Gynecology
DX: Z34.90 Encounter for supervision of normal pregnancy, unspecified, unspecified trimester (principal); Z3A.00 Weeks of gestation of pregnancy not specified
CPT/HCPCS: 36415; 82947

== ENCOUNTER 2023-11-07 14:16 | Outpatient (RCR) | payer OTHER, SELFPAY ==
[2023-11-08] MEDS: RHO(D) IMMUNE GLOBULIN 300 MCG/2 ML SYRINGE IM (18:22)
== END 2024-02-05 23:59 | disposition home or self-care (01) ==
LOC: ANHLAB 14:16
PROVIDERS: PCP Internal Medicine; Visit Provider Nurse Practitioner Obstetrics & Gynecology
DX: Z29.13 Encounter for prophylactic Rho(D) immune globulin (principal); O36.0190 Maternal care for anti-D [Rh] antibodies, unspecified trimester, not applicable or unspecified; Z3A.00 Weeks of gestation of pregnancy not specified
CPT/HCPCS: 36415; 85461; 86850; 86900; 86901; 90384; J2790

== ENCOUNTER 2023-12-11 09:09 | Outpatient (RCR) | payer OTHER, SELFPAY ==
--- NOTE | ~2023-12-11 | US_ITS ---
EXAMINATION: US OB follow up DATE: 12/11/2023 10:43 INDICATION: Gestational diabetes. Third trimester. TECHNIQUE: Real-time ultrasound of the pelvis was performed. COMPARISON: Ultrasound 07/15/2023, 05/19/2023 FINDINGS: There is a single living fetus in vertex presentation. The placenta is anterior. heart rate is 155 beats per minute (bpm). The amniotic fluid index is 21.3 cm, which is normal. The following biometric data were obtained: Biparietal diameter (BPD): 9.0 cm; head circumference (HC): 32.5 cm; abdominal circumference (AC): 32 .5 cm; femur length (FL): 6.7 cm. These measurements are concordant. Estimated weight is 2793 g +/- 419 g, which correlates with the 14th percentile when 12/25/23 is used as estimated date of delivery. As single measurements, these parameters are each equal to the following estimated gestational ages: BPD: 36 weeks 3 days. HC: 36 weeks 5 days. AC: 36 weeks 3 days. FL: 34 weeks 2 days. estimated gestational age based solely on measurements from this exam is 36 weeks 0 days +/- 2 weeks 4 days. IMPRESSION: 1. Single living fetus in vertex presentation. 2. Estimated weight is 2793 g +/- 419 g, which correlates with the 14th percentile when 4 is used as estimated date of delivery. This date was set by ultrasound on 05/19/2023. Reviewed, dictated and finalized at location A. IMPRESSION: 1. Single living fetus in vertex presentation. 2. Estimated weight is 2793 g +/- 419 g, which correlates with the 14th percentile when 12/25/23 is used as estimated date of delivery. This date was se t by ultrasound on 05/19/2023.
[2023-12-11 10:45] VITALS: BP 105/67; PULSE 69
== END 2023-12-30 15:59 | disposition home or self-care (01) ==
LOC: ANHOBOP 09:09
PROVIDERS: PCP Internal Medicine; Visit Provider Obstetrics & Gynecology
DX: O24.419 Gestational diabetes mellitus in pregnancy, unspecified control (principal); Z3A.38 38 weeks gestation of pregnancy
CPT/HCPCS: 59025; 76816

== ENCOUNTER 2023-12-17 21:05 | Inpatient (IN) | payer OTHER, SELFPAY ==
[2023-12-17] VITALS (11 sets, daily range): BP systolic 87–119; BP diastolic 30–85; PULSE 78–103; TEMP 36.7; BMI 34.7
--- NOTE | 2023-12-17 21:05 | LDADM ---
This patient, Luna Sethi, was admitted to Labor/Delivery/Recovery 107 on 12/17/23 at 21:05. Plans for labor, pain management and were discussed with patient. Patient/family oriented to hospital policies and general routines including ID bracelet, bed and alarms, visiting hours, pain management, procedures, bathroom and other care routines, personal items, smoking policy, room service/diet and guest tray routines, security routines, and visiting hours. Patient/Family are encouraged to report perceived risks to care and to ask questions if they do not understand what they are told or what they should do. See OBIX for further documentation.
[2023-12-17 21:43] LABS: Glucose Point of Care 118 mg/dl (65-105)
[2023-12-17 21:44] LABS: Basophils Percent Auto 0.2 % (0.2-1.2); Eosinophils Absolute Auto 0.2 K/mm3 (0-0.3); Eosinophils Percent Auto 1.5 % (0-4.4); Hematocrit 36.7 % (37.0-47.0); Hemoglobin 12.5 g/dL (12.0-15.0); Lymphocytes Absolute Auto 1.84 K/mm3 (0.9-3.2); Lymphocytes Percent Auto 18.2 % (18.3-44.2); Mean Corpuscular HGB Conc 34.1 g/dl (32-36); Mean Corpuscular Hemoglobin 30.1 pg (26-34); Mean Corpuscular Volume 88.4 fl (80-100); Mean Platelet Volume 10.7 fl (7.4-10.4); Monocytes Absolute Auto 0.8 K/mm3 (0.1-0.6); Monocytes Percent Auto 7.4 % (2.6-8.5); Neutrophils Absolute Auto 7.3 K/mm3 (1.3-6.7); Neutrophils Percent Auto 71.7 % (45.5-73.1); Platelet Count Result 235 k/mm3 (150-375); Red Blood Count 4.15 M/mm3 (4.2-5.4); Red Cell Distribution Width 12.7 % (11.5-14.5); White Blood Count 10.1 K/mm3 (4.5-10.0)
[2023-12-17] MEDS: miSOPROStol 25 MCG TABLET BUCCAL (21:59)
[2023-12-17 22:19] LABS: Rapid Plasma Reagin Non-Reactive (NonReactive)
[2023-12-17 22:35] LABS: HIV 1/2 Ab P24 Ag Result Negative (Negative)
[2023-12-18] VITALS (156 sets, daily range): BP systolic 85–146; BP diastolic 46–93; PULSE 25–158; RESP 16; TEMP 36.1–37.4; O2SAT 73–100
[2023-12-18 02:14] LABS: Glucose Point of Care 76 mg/dl (65-105)
[2023-12-18] MEDS: OXYTOCIN 30 UNITS/NS 500 ML 30 UNITS/500 ML BAG IV CONT (03:40)
[2023-12-18] MEDS: LACTATED RINGERS 1,000 ML 125 ML IV CONT ×2 (03:41→09:52)
[2023-12-18 06:26] LABS: Glucose Point of Care 76 mg/dl (65-105)
--- NOTE | 2023-12-18 09:09 | WPDANESEPP ---
Anes - Eval Pre Procedure Procedure: Labor Pain managment Date/Time: 12/18/23 09:09 Surgeon: Keisha Preop Diagnosis: Pain during labor Pre Op Diagnosis: Induction of Labor Patient Data Age: 33 Gender: F Height: 1.6 m Weight: 89 kg Last Vital Signs Temp 97 F L 12/18/23 06:22 Pulse 82 12/18/23 08:46 BP 107/65 12/18/23 08:46 O2 Del Method Room Air 12/17/23 21:50 Allergies Allergy/AdvReac Type Severity Reaction Status Date / Time No Known Allergies Allergy Verified 12/10/23 15:42 Home Medications Medication Instructions Recorded Confirmed Type cetirizine 10 mg tablet (Zyrtec) 10 mg PO DAILY 12/25/22 12/17/23 History docosahexaenoic acid 200 mg 200 mg PO DAILY 05/06/23 12/17/23 History capsule ( DHA) sertraline 50 mg tablet 50 mg PO DAILY 05/06/23 12/17/23 History blood sugar diagnostic (OneTouch #100 ea 09/17/23 12/14/23 Rx Verio test strips) blood-glucose meter (OneTouch #1 ea 09/17/23 12/14/23 Rx Verio Flex Meter) lancets 33 gauge #100 ea 09/17/23 12/14/23 Rx doxylamine succinate 25 mg tablet 25 mg PO HS 11/28/23 12/17/23 History (Unisom (doxylamine)) Laboratory Tests 12/17/23 12/17/23 12/17/23 21:19 21:20 21:37 WBC 10.1 H K/mm3 (4.5-10.0) RBC 4.15 L M/mm3 (4.2-5.4) Hgb 12.5 g/dL (12.0-15.0) Hct 36.7 L % (37.0-47.0) MCV 88.4 fl (80-100) MCH 30.1 pg (26-34) MCHC 34.1 g/dl (32-36) RDW 12.7 % (11.5-14.5) Plt Count 235 k/mm3 (150-375) MPV 10.7 H fl (7.4-10.4) Immature Gran % (Auto) 1.0 H % (0-0.5) Neut % (Auto) 71.7 % (45.5-73.1) Lymph % (Auto) 18.2 L % (18.3-44.2) Real % (Auto) 7.4 % (2.6-8.5) Eos % (Auto) 1.5 % (0-4.4) Baso % (Auto) 0.2 % (0.2-1.2) Lymph # (Auto) 1.84 K/mm3 (0.9-3.2) Real # (Auto) 0.8 H K/mm3 (0.1-0.6) Eos # (Auto) 0.2 K/mm3 (0-0.3) Baso # (Auto) 0.0 K/mm3 (0.0-0.1) Abs Immat Gran (auto) 0.10 H K/mm3 (0.00-0.031) Absolute Neuts (auto) 7.3 H K/mm3 (1.3-6.7) Absolute Nucleated RBC 0.000 K/mm3 (0.0-0.012) Nucleated RBC % 0.0 % (0.0-0.2) POC Capillary Glucose 118 H mg/dl (65-105) RPR Non-reactive (NonReactive) HIV 1&2 Ab/P24 Ag 4thGn Negative (Negative) Blood Type B Negative Antibody Screen Positive Antibody Identification Passive Due to RH Imm Glob Antigen Identification Cancelled JONATHON, IgG Interpret Negative JONATHON, Poly Interpret TNP JONATHON, Complement Interp Negative 12/18/23 12/18/23 02:11 06:22 WBC RBC Hgb Hct MCV MCH MCHC RDW Plt Count MPV Immature Gran % (Auto) Neut % (Auto) Lymph % (Auto) Real % (Auto) Eos % (Auto) Baso % (Auto) Lymph # (Auto) Real # (Auto) Eos # (Auto) Baso # (Auto) Abs Immat Gran (auto) Absolute Neuts (auto) Absolute Nucleated RBC Nucleated RBC % POC Capillary Glucose 76 mg/dl 76 mg/dl (65-105) (65-105) RPR HIV 1&2 Ab/P24 Ag 4thGn Blood Type Antibody Screen Antibody Identification Antigen Identification JONATHON, IgG Interpret JONATHON, Poly Interpret JONATHON, Complement Interp Patient hx anesthesia problems: none Family hx anesthesia problems: none Results Review: All pre-operative results and documents have been reviewed as part of the pre-operative evaluation. [facility] Past Medical History Medical History Anxiety Insomnia Miscarriage Surgical
[2023-12-18 11:15] LABS: Glucose Point of Care 66 mg/dl (65-105)
[2023-12-18 13:02] LABS: Glucose Point of Care 61 mg/dl (65-105)
[2023-12-18] MEDS: OXYTOCIN 30 UNITS/NS 500 ML 30 UNITS/500 ML BAG 125 UNITS IV CONT (13:48)
[2023-12-18] MEDS: BENZOCAINE 20% AER SPR (*SP) 56 GM CAN 1 SPRAY TOPICAL (16:07)
[2023-12-18] MEDS: WITCH HAZEL 40 PADS 1 PAD TOPICAL (16:07)
--- NOTE | 2023-12-18 16:18 | OBPPTRN ---
Patient transferred to post room #291 via wheelchair. Support person present. Oriented to unit, room, information board, rooming in, admission packet and security measures. Patient verbalizes understanding.
[2023-12-18] MEDS: IBUPROFEN 600 MG TABLET PO (16:53)
[2023-12-18] MEDS: DOCUSATE SODIUM 100 MG CAPSULE PO (16:54)
[2023-12-19 03:43] VITALS: BP 95/55; PULSE 80; RESP 12; TEMP 36.6; O2SAT 98
[2023-12-19 05:25] LABS: Hematocrit 33.9 % (37.0-47.0); Hemoglobin 11.4 g/dL (12.0-15.0)
[2023-12-19] MEDS: IBUPROFEN 600 MG TABLET PO ×3 (07:24→22:32)
[2023-12-19] MEDS: MULTIVIT/MIN/PREN/FOL AC/IRON TABLET 1 TAB PO (07:24)
[2023-12-19] MEDS: DOCUSATE SODIUM 100 MG CAPSULE PO (07:24)
--- NOTE | 2023-12-19 07:31 | PM.IMHP ---
H&P: HPI History of Present Illness Date/Time: 12/19/23 07:31 Chief Complaint: Induction of labor Narrative: patient is a 33-year-old admitted for medical induction of labor due to gestational diabetes. Gestational diabetes is diet controlled. She has had reassuring testing her ultrasounds have shown adequate growth. She was informed of risks benefits of induction of labor versus spontaneous labor and has opted for induction of labor. Review of Systems Review of Systems: All systems reviewed & are unremarkable except as noted in HPI and below Constitutional: Constitutional: Reports no additional constitutional complaints and Denies headache(s) Eyes: Eyes: Denies spots in vision ENT: Reports system reviewed and no additional complaints, except as documented and Denies headache(s) Cardiovascular: Cardiovascular: Denies chest pain and Denies dyspnea Respiratory: Respiratory: Denies dyspnea Gastrointestinal: Gastrointestinal: Reports no additional gastrointestinal complaints Genitourinary: Genitourinary: Reports amenorrhea Musculoskeletal: Musculoskeletal: Reports no additional musculoskeletal complaints Integumentary/Breasts: Skin/Breast: Denies breast mass and Denies rash Neurologic: Denies headache(s) Psychiatric: Psychiatric: Reports no additional psychiatric complaints [facility] Past Medical History Medical History Anxiety Insomnia Miscarriage Surgical History Surgical History H/O colonoscopy H/O eye surgery S/P tonsillectomy and adenoidectomy Jay[place] teeth removed Family History Family History Other Breast cancer Cervical cancer Colon cancer Depression Heart disease Social History Social History Smoking status: Former smoker Tobacco type: e-cigarettes/vaping Second hand tobacco smoke exposure: No Alcohol intake: never Substance use: never Substance use type: does not use Do You Feel Safe in your Home?: Yes Lack of Transportation: No Lack of Food: Never True Current Housing: I Have Housing Concerned About Future Housing: No Difficulty Paying Gas/Electric Bills: No Difficulty Paying for Meds: No Currently Unemployed: No Education: Bachelor's Degree Difficulty w/ Childcare or Family Care: No Spiritual care concerns: No Meds Home Medications and Allergies Home Medications Medication Instructions Recorded Confirmed Type cetirizine 10 mg tablet (Zyrtec) 10 mg PO DAILY 12/25/22 12/17/23 History docosahexaenoic acid 200 mg 200 mg PO DAILY 05/06/23 12/17/23 History capsule ( DHA) sertraline 50 mg tablet 50 mg PO DAILY 05/06/23 12/17/23 History blood sugar diagnostic (OneTouch #100 ea 09/17/23 12/14/23 Rx Verio test strips) blood-glucose meter (OneTouch #1 ea 09/17/23 12/14/23 Rx Verio Flex Meter) lancets 33 gauge #100 ea 09/17/23 12/14/23 Rx doxylamine succinate 25 mg tablet 25 mg PO HS 11/28/23 12/17/23 History (Unisom (doxylamine)) Allergies Allergy/AdvReac Type Severity Reaction Status Date / Time No Known Allergies Allergy Verified 12/10/23 15:42 Vital Signs Vital Signs - 24 hr 12/18/23 07:46 12/18/23 08:01 12/18/23 08:31 Temperature Pulse Rate 77 87 80 Respiratory Rate Blood Pressure 115/70 110/65 109/60 Pulse Oximetry Oxygen Delivery 12/18/23 08:46 12/18/23 09:16 12/18/23 09:31 Temperature Pulse Rate 82 95 75 Respiratory Rate Blood Pressure 107/65 105/71 115/74 Pulse Oximetry Oxygen Delivery 12/18/23 09:46 12/18/23 10:02 12/18/23 10:06 Temperature Pulse Rate 89 84 Respiratory Rate Blood Pressure 117/77 122/82 Pulse Oximetry 100 Oxygen Delivery 12/18/23 10:07 12/18/23 10:12 12/18/23 10:13 Temperature Puls
[2023-12-19 07:40] VITALS: BP 84/51; PULSE 74; RESP 16; TEMP 36.3; O2SAT 100
--- NOTE | 2023-12-19 07:41 | PM.OBPRVD ---
OB - Vaginal Delivery Note Procedure Delivery date: 12/19/23 Events: Diabetes Mellitus (diet controlled) Induction method: Per Misoprostol Protocol Delivery augmentation: Rupture of Membranes Delivery monitor: External FHT Route of delivery: Laceration Description: Perineal - 2nd Degree Delivery repair: vicryl (3.0 vicryl) Specimen: No Quantitative Blood Loss (ml): 150 Anesthesia type: Epidural Disposition: Floor Complications: No immediate complications Narrative: She was admitted for induction of labor for gestational diabetes diet controlled. She had cytotec and then Pitocin. She had AROM clear fluid and she progressed to active labor. She dilated to complete and delivered a male infant. Infant's nose and mouth suctioned at perineum. vigorously crying and placed on maternal abdomen. Delayed cord clamping for a minute. Baby Date of : 12/18/23 Time of : 13:17 Gestational Age by Date: 39 gender: Male Weight (pounds): 6 Weight (ounces): 5 presentation: vertex position: Right Occiput Anterior Placenta delivery description: Spontaneous Cord Vessel Description: 3 Vessels, Clamped/Cut and Delayed Cord Clamping score one minute: 8 score five minutes: 9
--- NOTE | 2023-12-19 07:47 | WPDANLDPN2 ---
Anes-Prog Note L&D Date/Time: 12/19/23 07:47 Neuro status: Neuro function grossly intact. Cardiovascular status: normal Respiratory status: normal Airway patency: baseline Mental status: baseline Post-Op hydration status: normal Vital Signs: Last Vital Signs Temp 36.6 C 12/19/23 03:43 Pulse 80 12/19/23 03:43 Resp 12 12/19/23 03:43 BP 95/55 L 12/19/23 03:43 Pulse Ox 98 12/19/23 03:43 O2 Del Method Room Air 12/18/23 16:30 Pain score (VAS): 0 I/O: Intake & Output 12/18/23 12/18/23 12/19/23 15:59 23:59 07:59 Intake Total 772.9 Output Total 150 100 Balance 622.9 -100 Post-procedural complaints: none Patient feedback: Patient satisfied with anesthetic care.
--- NOTE | 2023-12-19 09:30 | PC.NURSE ---
Introductions were made, then consulted with patient to assess needs related to . Mother led the conversation with her?plans to feed?her and the?experience so far. Encouraged understanding of the benefits of skin to skin (demonstrating unwrapping infant and placing upright on her chest), stimulating with massage touch, changing positions to encourage wakefulness, how to watch for early feeding cues, responsive feeding, feeding on demand (aiming for 8-12 times in 24 hours, about every 2-3 hours), milk production, building/maintaining a milk supply, duration of feeding, signs of adequate intake/output and how to record on the feeding sheet. Mother works well with her infant with encouragement and education. Reviewed positioning and ear, shoulder, hip alignment, supporting the breast to facilitate a deep latch, asymmetrical latch (off-center), leading with the chin with a big, open, wide gape and body close to mother. Education given to the mother of how to visualize the suckling (with good rocking jaw motion), swallows (dropping of the lower jaw) and how to listen for drinking at the breast (the ka sound). Infant was [able/unable] to maintain latch without pain to mother protecting the nipple with optimal positioning and latching. Reviewed comfort measures of healing with a warm, wet washcloth to rinse breast, then leave open to air-dry, good handwashing when or touching the breast/nipples to prevent infection. Mother voiced understanding of skin to skin, stimulating with massage touch, responsive feedings, hand expressed colostrum, talking to infant to encourage if it has been 2 -2.5 hours since the start of the last , to call if does not latch, or if there is discomfort with . Mother verbalizes she is able to independently latch infant with appropriate positioning and alignment. She denies any nipple discomfort and is responsively . is currently meeting outcomes for weight, output, jaundice, blood sugar and feeding frequencies of 8-12 times in 24 hours. Mother declines any additional assistance or education at this time. Mother is encouraged to call for assistance if her doesn?t latch, pain with latching, questions or concerns. Mother voiced understanding of information shared along with the mom/baby guide for an additional resource. Reported to the Primary RN.
--- NOTE | 2023-12-19 09:59 | PM.OBPNVD ---
OB - PN: Subj Subjective Date/time seen: 12/19/23 0730 Interval history: She is currently . Patient comments: pain well controlled, tolerating diet and other (Decreasing lochia.) [place] baby status: doing well and nursing well feeding status: exclusively breast feeding OB - PN: Obj Data Labs 12/19/23 03:51 Labs: Laboratory Results - last 24 hr 12/18/23 12/18/23 12/19/23 11:09 12:59 03:51 Hgb 11.4 L Hct 33.9 L POC Capillary Glucose 66 61 L Blood Type B Negative Screen Negative Baby's Blood Type O pos Baby's JONATHON Positive Doses of RhIg Required 1 OB - PN A/P Plan day: 1 Plan: routine care Comments: Patient doing well. Time Spent With Patient Time: Total time spent is greater than 50% in coordination of care (as documented) at patient's floor/unit and/or counseling patient: Exam Psych: Affect: normal affect Other: Abd: fundus firm below umbilicus, nontender Ext: nontender
[2023-12-19] MEDS: RHO(D) IMMUNE GLOBULIN 300 MCG/2 ML SYRINGE IM (11:20)
[2023-12-19 18:55] VITALS: BP 99/63; PULSE 82; RESP 14; TEMP 36.6; O2SAT 100
[2023-12-20 07:30] VITALS: BP 109/68; PULSE 75; RESP 18; TEMP 36.9; O2SAT 100
--- NOTE | 2023-12-20 08:26 | P.PNOB_ITS ---
OB - PN: Subj Subjective Date/time seen: 12/20/23 08:00 Narrative: PPD#2 Luna reports doing well today. Her bleeding is flute grinder. Her pain is controlled. She is tolerating regular diet, voiding, passing gas, and ambulating without issues. She is breast feeding. OB - PN: Obj Data Labs 12/19/23 03:51 Labs: Laboratory Results - last 24 hr 12/19/23 03:51 Hgb 11.4 L Hct 33.9 L Blood Type B Negative Screen Negative Baby's Blood Type O pos Baby's JONATHON Positive Doses of RhIg Required 1 OB - PN A/P Assessment and Plan (1) Vaginal delivery: Code(s): O80 - Encounter for full-term uncomplicated delivery Status: Acute (2) Gestational diabetes: Code(s): O24.419 - Gestational diabetes mellitus in , unspecified control Status: Acute Plan day: 2 Plan: routine care and discharge home Comments: - PO pain meds - Regular diet - Ambulation and hydration encouraged - Continue putting baby to breast q2-3hr - Pelvic rest; take meds as prescribed - ER return precautions: fever, n/v/abd pain, bleeding, HTN Time Spent With Patient Time: Total time spent is greater than 50% in coordination of care (as documented) at patient's floor/unit and/or counseling patient: Review of Systems 2 Constitutional: Constitutional: Denies chills, Denies fever(s) and Denies headache(s) Eyes: Eyes: Denies change in vision ENT: Denies dizziness and Denies headache(s) Cardiovascular: Cardiovascular: Denies chest pain, Denies palpitations and Denies dyspnea Respiratory: Respiratory: Denies cough and Denies dyspnea Gastrointestinal: Gastrointestinal: Denies nausea and Denies vomiting Neurologic: Denies dizziness and Denies headache(s) Endocrine: Endocrine: Denies palpitations Exam Const: General: cooperative, comfortable and no acute distress Orientation/consciousness: patient oriented x3 Resp: Effort & Inspection: normal respiratory effort Auscultation: clear to auscultation bilaterally Cardio: Rate: regular rate GI: Inspection: non-distended GI Palp: No abdominal tenderness and Yes Soft to palpation Auscultation: normal bowel sounds : Other: fundus firm Skin: General skin exam: normal color Neuro: General: patient oriented x3 Extrem: General: normal to inspection Psych: Appearance: grossly normal Affect: normal affect Attitude: cooperative
--- NOTE | 2023-12-20 09:18 | PM.OBDSVD ---
DS: Admitting Diagnosis Discharge Date 12/20/23 <Rashid Valdes MD - Last Filed: 12/19/23 10:03> Admitting Diagnosis 1. Medical induction of labor 2. Gestational diabetes diet controlled <Rashid Valdes MD - Last Filed: 12/19/23 10:03> DS: Discharge Diagnosis Discharge Diagnosis (1) Vaginal delivery: Code(s): O80 - Encounter for full-term uncomplicated delivery <Rashid Valdes MD - Last Filed: 12/19/23 10:03> Status: Acute <Rashid Valdes MD - Last Filed: 12/19/23 10:03> OB - DS: Summary Hospital Course Hospital Course: she was admitted for medical induction of labor she had Cytotec and subsequent Pitocin. She had an uncomplicated vaginal delivery. She did well . Baby was doing well . <Rashid Valdes MD - Last Filed: 12/19/23 10:03> OB Procedures : Ultrasound <Rashid Valdes MD - Last Filed: 12/19/23 10:03> OB Procedures Intrapartum: Spontaneous Vag Delivery <aRshid Valdes MD - Last Filed: 12/19/23 10:03> OB Procedures: : None <Rashid Valdes MD - Last Filed: 12/19/23 10:03> Peripartum Data Delivery Method: Natural Vaginal <Rashid Valdes MD - Last Filed: 12/19/23 10:03> Laceration Description: Perineal - 2nd Degree <Rashid Valdes MD - Last Filed: 12/19/23 10:03> complications: none <Rashid Valdes MD - Last Filed: 12/19/23 10:03> Status at Discharge Functional status at discharge: independent ambulation <Mishel Winslow MD - Last Filed: 12/20/23 09:19> Overall status at discharge: patient is back to baseline <Mishel Winslow MD - Last Filed: 12/20/23 09:19> Time Spent with Patient Time attestation: Total time spent providing and/or coordinating discharge services: <Rashid Valdes MD - Last Filed: 12/19/23 10:03> Time spent: Less than 30 minutes <Mishel Winslow MD - Last Filed: 12/20/23 09:19> Exam Const: General: cooperative, comfortable and no acute distress <Mishel Winslow MD - Last Filed: 12/20/23 09:19> Orientation/consciousness: patient oriented x3 <Mishel Winslow MD - Last Filed: 12/20/23 09:19> Resp: Effort & Inspection: normal respiratory effort <Mishel Winslow MD - Last Filed: 12/20/23 09:19> Auscultation: clear to auscultation bilaterally <Mishel iWnslow MD - Last Filed: 12/20/23 09:19> Cardio: Rate: regular rate <Mishel Winslow MD - Last Filed: 12/20/23 09:19> GI: Inspection: non-distended <Mishel Winslow MD - Last Filed: 12/20/23 09:19> GI Palp: No abdominal tenderness and Yes Soft to palpation <Mishel Winslow MD - Last Filed: 12/20/23 09:19> Auscultation: normal bowel sounds <Mishel Winslow MD - Last Filed: 12/20/23 09:19> : Other: fundus firm <Mishel Winslow MD - Last Filed: 12/20/23 09:19> Skin: General skin exam: normal color <Mishel Winslow MD - Last Filed: 12/20/23 09:19> Neuro: General: patient oriented x3 <Mishel Winslow MD - Last Filed: 12/20/23 09:19> Extrem: General: normal to inspection <Mishel Winslow MD - Last Filed: 12/20/23 09:19> Psych: Appearance: grossly normal <Mishel Winslow MD - Last Filed: 12/20/23 09:19> Affect: normal affect <Mishel Winslow MD - Last Filed: 12/20/23 09:19> Attitude: cooperative <Mishel Winslow MD - Last Filed: 12/20/23 09:19> DS: Data Data Completed and Pending Labs on day of discharge: Labs from last 24 hours 12/19/23 12/18/23 12/18/23 03:51 12:59 11:09 Hgb 11.4 L Hct 33.9 L POC Capillary Glucose 61 L 66 Blood Type B Negative Antibody Screen Pending Screen Negative Baby's Blood Type O pos Baby's JONATHON Positive Doses of RhIg Required 1 <Rashid Valdes MD - Last Filed: 12/19/23 10:03> Discharge Plan Discharge Attending physician on discharge: Rashid Valdes <Rashid Valdes MD - Last File
[2023-12-20] MEDS: MULTIVIT/MIN/PREN/FOL AC/IRON TABLET 1 TAB PO (09:54)
[2023-12-20] MEDS: IBUPROFEN 600 MG TABLET PO (09:54)
[2023-12-20] MEDS: DOCUSATE SODIUM 100 MG CAPSULE PO (09:54)
--- NOTE | 2023-12-20 11:00 | PC.NURSE ---
Consulted with mother concerning needs and she shared her ability to independently latch infant optimally without pain. Mother is feeding appropriately for growth of and understands stimulating to eat if needed. Infant has had appropriate feedings in the last 24 hours meets the outcomes for weight, output, blood sugar and jaundice at this time. Reinforced understanding of milk production, transition of milk, signs of adequate intake, transition of stool, prevention/relief of engorgement, plugged ducts, mastitis, responsive watching for feeding cues, the different methods of stimulating to breastfeed 1-3 hours after the start of the last feeding, community resources, and when to call a provider using the resource of the feeding sheet along with the mom and baby guide. Mother voiced understanding of the information shared, is confident to continue effectively her infant at home, when to call for assistance, denies any additional assistance or education at this time. Reported to the Primary RN.
[2023-12-20] MEDS: MEASLES,MUMPS,RUBELLA VACCINE 0.5 ML VIAL SUB-Q (11:54)
[2023-12-22 11:13] VITALS: BP 106/66; PULSE 97; RESP 18; TEMP 36.8; O2SAT 99
== END 2023-12-20 12:05 | disposition home or self-care (01) | DRG 807 ==
LOC: ANHOB2 12-20 10:54 → ANHLDR 12-23 07:51
PROVIDERS: Admitting Provider Obstetrics & Gynecology; PCP Internal Medicine; Visit Provider Obstetrics & Gynecology
DX: O24.420 Gestational diabetes mellitus in childbirth, diet controlled (principal); Z37.0 Single live birth; Z3A.39 39 weeks gestation of pregnancy; O70.1 Second degree perineal laceration during delivery
CPT/HCPCS: 36415; 82948; 85014; 85018; 85025; 85461; 86592; 86703; 86850; 86880; 86900; 86901; 90384; 90710; A9270; G0432; J2590; J2790; J2795; J7120

== ENCOUNTER 2024-02-16 09:08 | Outpatient (CLI) | payer OTHER, SELFPAY ==
[2024-02-16 09:35] LABS: Glucose Fasting 80 mg/dL
[2024-02-16 10:59] LABS: Glucose 1 Hour 75 mg/dL
[2024-02-16 11:42] LABS: Glucose 2 Hour 75 mg/dL
== END 2024-02-16 09:09 | disposition home or self-care (01) ==
PROVIDERS: PCP Internal Medicine; Visit Provider Obstetrics & Gynecology
DX: O24.419 Gestational diabetes mellitus in pregnancy, unspecified control (principal); Z3A.00 Weeks of gestation of pregnancy not specified
CPT/HCPCS: 36415; 82951

== ENCOUNTER 2025-02-23 15:39 | Emergency (ER) | payer OTHER, SELFPAY ==
[2025-02-23 15:46] VITALS: BP 109/77; PULSE 91; RESP 18; TEMP 36.4; O2SAT 98
--- NOTE | 2025-02-23 15:55 | ED_ITS ---
HPI - General Adult General Chief complaint: Eye Problems Stated complaint: right eye irritation Source: patient Mode of arrival: ambulatory Limitations: no limitations History of Present Illness HPI narrative: Pt is a 34 y/o female presenting with c/o R. eye irritation. Reports noticing redness to the inner corner of her eye upon awakening this morning. Denies known trauma/injury. Does not wear contact lenses. No pets sleep in her bed. No tx initiated [employer]. No additional complaints. Related Data Home Medications ?Medication ?Instructions ?Recorded ?Confirmed ?Last Taken ?Type atomoxetine 25 mg capsule mg PO 02/23/25 Unknown Hist ory desvenlafaxine succinate 25 mg mg PO 02/23/25 Unknown History tablet,extended release 24 hr ondansetron HCl 4 mg tablet mg 02/23/25 Unknown Histo ry sertraline 02/23/25 Unknown History tirzepatide (weight loss) 5 mg/0.5 mg subcut 02/23/25 Unknown History mL subcutaneous pen injector (Zepbound) Allergies Allergy/AdvReac Type Severity Reaction Status Date / Time No Known Allergies Allergy Verified 02/23/25 15:40 Review of Systems Review of Systems: CONSTITUTIONAL: Denies body aches, fever, chills, or sweats. EYES: Reports R. eye irritation. Denies visual changes or discharge. ENT: Denies rhinorrhea, congestion, sore throat, or otalgia. CARDIOVASCULAR: Denies chest pain, palpitations, or edema. RESPIRATORY: Denies cough or dyspnea. GASTROINTESTINAL: Denies abdominal pain, nausea, vomiting, or diarrhea. GENITOURINARY: Denies dysuria or hematuria. SKIN: Denies rash, itching, or wounds. MUSCULOSKELETAL: Denies back pain, joint pain, or myalgia. NEUROLOGIC: Denies headache, numbness, tingling, or weakness. PSYCH: Denies depression or anxiety. All systems reviewed & are unremarkable except as noted in HPI and below PMFSH Past Medical History Medical History Anxiety Insomnia Miscarriage Surgical History Surgical History H/O colonoscopy H/O eye surgery S/P tonsillectomy and adenoidectomy [place] teeth removed Family History Family History Other Breast cancer Cervical cancer Colon cancer Depression Heart disease Social History Social History Smoking status: Former smoker Tobacco type: e-cigarettes/vaping Second hand tobacco smoke exposure: No Alcohol intake: never Substance use: never Substance use type: does not use Do You Feel Safe in your Home?: Yes Lack of Transportation: No Lack of Food: Never True Current Housing: I Have Housing Concerned About Future Housing: No Difficulty Paying Gas/Electric Bills: No Difficulty Paying for Meds: No Currently Unemployed: No Education: Bachelor's Degree Difficulty w/ Childcare or Family Care: No Spiritual care concerns: No Exam Narrative: GENERAL: Well-appearing, well-nourished, and in no acute distress. HEAD: Normocephalic, atraumatic. EYES: EOMI. No drainage. Conjunctival injection noted medially (left eye). ENT: Mucous membranes pink and moist. NECK: Normal AROM. Supple. CHEST: No respiratory distress. HEART: Regular rate EXTREMITIES: Normal range of motion. SKIN: Warm, dry, no rash. Capillary refill normal. Normal skin turgor. NEURO: No focal deficits. Alert and oriented x3. Gait steady. PSYCH: Normal affect. No signs of depression or anxiety. Eyes: Conjunctivae: conjunctival abnormality right conjunctival injection localized (medially) Direct Ophthalmoscopy: No no photophobia Other: pin point abrasion noted Course Course Level of Care: Express Care Visit Vital Signs Vital signs: Vital Signs Temperature 97.5 F L 02/23/25 15:46 Pulse Rate 91 02/23/25 15:46 Respiratory Rate 18 02/23/25 15:46 Blood Pressure 109/77 02/23/25 15:46 Pulse Oximetry 98 02/23/25 15:46 Oxygen Delivery Room Air 02/23/25 15:46 Temperature 97.5 F L 02/23/25 15:46 Pulse Rate 91 02/23/25 15:46 Respiratory Rate 18 02/23/25 15:46 Blood Pressure 109/77 02/23/25 15:46 Pulse Oximetry 98 02/23/25 15:46 Oxygen Delivery Room Air 02/23/25 15:46 Procedures Other Procedure Procedure 1: Other Procedure: Fluorescein staining of the cornea was performed by first placing a drop of tetracaine on a sterile fluorescein strip. I then gently pulled down on the R. lower lid and gently touching the bulbar conjunctiva with the fluorescein strip. I asked the patient to blink in order to distribute the dye over the ocular surface. No stained corneal epithelial defect noted with the naked eye. I then used a cobalt blue light to enhance visualization. I did appreciate a pin point staining defect on fluorescein examination, medially. I then irrigated the R. eye with NS via eye wash bottle to remove any remaining fluorescein. Pt tolerated procedure well without immediate complication. Medical Decision Making Vital Signs Vital Signs: Vital Signs Temperature 97.5 F L 02/23/25 15:46 Pulse Rate 91 02/23/25 15:46 Respiratory Rate 18 02/23/25 15:46 Blood Pressure 109/77 02/23/25 15:46 Pulse Oximetry 98 02/23/25 15:46 Oxygen Delivery Room Air 02/23/25 15:46 Temperature 97.5 F L 02/23/25 15:46 Pulse Rate 91 02/23/25 15:46 Respiratory Rate 18 02/23/25 15:46 Blood Pressure 109/77 02/23/25 15:46 Pulse Oximetry 98 02/23/25 15:46 Oxygen Delivery Room Air 02/23/25 15:46 Discharge Plan Discharge Clinical Impression: Conjunctival injection Qualifiers: Laterality: right Qualified Code(s): H11.431 - Conjunctival hyperemia, right eye Abrasion, corneal Qualifiers: Encounter type: initial encounter Laterality: right Qualified Code(s): S05.01XA - Injury of conjunctiva and corneal abrasion without foreign body, right eye, initial encounter Patient Disposition: Home Condition: Stable Instructions: Antibiotic Form Additional Instructions: Go straight to ER should your symptoms become worse or should any new symptoms develop Patient Language: [place] Prescriptions: New erythromycin 5 mg/gram (0.5 %) ointment 0.5 inch EACH EYE QID 5 Days Qty: 3.5 0RF No Action ondansetron HCl 4 mg tablet atomoxetine 25 mg capsule PO desvenlafaxine succinate 25 mg tablet extended release 24 hr PO Zepbound 5 mg/0.5 mL pen injector SUBCUT sertraline Follow-up/Referrals: Zac,MD Tomas [Primary Care Provider, Unknown] - 02/24/25 Time of Disposition: 16:07
[2025-02-23] MEDS: TETRACAINE HCL 0.5% OPHTH SOLN 4 ML BTL RIGHT EYE (16:08)
[2025-02-23] MEDS: FLUORESCEIN SOD 1 MG/STRIP RIGHT EYE (16:08)
[2025-02-23] MEDS: DACRIOSE EYE IRRIGATION 118 ML BOTTLE RIGHT EYE (16:08)
== END 2025-02-23 16:15 | disposition home or self-care (01) ==
PROVIDERS: Emergency Provider Registered Nurse; PCP Internal Medicine
DX: H11.431 Conjunctival hyperemia, right eye (principal); S05.01XA Injury of conjunctiva and corneal abrasion without foreign body, right eye, initial encounter; X58.XXXA Exposure to other specified factors, initial encounter; F41.9 Anxiety disorder, unspecified
CPT/HCPCS: 99213; A9270; G0463